=== PATIENT | male | born 1955 | race Caucasian/White ===

== ENCOUNTER 2019-04-26 12:25 | Emergency (ER) | payer BC, OTHER ==
[~2019-04-26] VITALS: Ht 188 cm; Wt 146.9 kg
[~2019-04-26 12:25] MED LIST: DOCU-28 PO; GLIP5TAB13 PO; HYDR-3972 PO; LISI1TAB29 PO; METF500T PO; METO25TA6 PO; PIOG15TA8 PO; POTA20TA10 PO; PRAV40TA3 PO
[2019-04-26 14:09] LABS: BASOPHILS # (AUTO) 0.1 X10'3 (0-0.2); BASOPHILS % (AUTO) 0.6 % (0-1); EOSINOPHILS % (AUTO) 0.2 % (0-6); HEMATOCRIT 41.3 % (42.0-52.0); HEMOGLOBIN 14.5 g/dl (14.0-17.9); LYMPHOCYTES # (AUTO) 1.5 X10'3 (1.1-4.8); LYMPHOCYTES % (AUTO) 14.1 % (21-51); MEAN CORPUSCULAR HEMOGLOBIN 30.7 PG (27.0-31.0); MEAN CORPUSCULAR HGB CONC 35.2 g/dL (33.0-36.5); MEAN CORPUSCULAR VOLUME 87.3 FL (78-98); MEAN PLATELET VOLUME 9.4 FL (7.4-10.4); MONOCYTES # (AUTO) 0.6 X10'3 (0-0.9); MONOCYTES % (AUTO) 5.9 % (2-12); NEUTROPHILS # (AUTO) 8.2 X10'3 (1.8-7.7); NEUTROPHILS % (AUTO) 79.2 % (42-75); PLATELET COUNT 293 X10'3 (140-440); RED BLOOD COUNT 4.73 X10'6 (4.70-6.10); RED CELL DISTRIBUTION WIDTH 14.8 % (11.5-14.5); WHITE BLOOD COUNT 10.3 X10'3 (4.5-11.0)
[2019-04-26 14:14] LABS: ALANINE AMINOTRANSFERASE 32 U/L (12-78); ALBUMIN 3.7 G/DL (3.4-5.0); ALBUMIN/GLOBULIN RATIO 0.8 (1.1-1.5); ALKALINE PHOSPHATASE 72 IU/L (46-116); ANION GAP 13 (8-16); ASPARTATE AMINO TRANSFERASE 16 U/L (10-37); BILIRUBIN,TOTAL 0.2 MG/DL (0.1-1.0); BLOOD UREA NITROGEN 44 MG/DL (7-18); BUN/CREATININE RATIO 27.2 (5.4-32.0); CALCIUM 9.6 MG/DL (8.5-10.1); CHLORIDE 100 MMOL/L (99-107); CREATININE 1.62 MG/DL (0.60-1.10); GLUCOSE 404 MG/DL (70-104); POTASSIUM 3.9 MMOL/L (3.5-5.1); SODIUM 135 MMOL/L (135-145); TOTAL PROTEIN 8.3 G/DL (6.4-8.2); eGFR 43 ML/MIN
--- NOTE | 2019-04-26 14:30 | NUR ---
URINE BEING OBTAINED
[2019-04-26 14:41] LABS: CLARITY,URINE CLEAR (Clear); COLOR,URINE STRAW (Yellow); GLUCOSE, URINE >=1000 mg/dl (Neg); KETONES,URINE NEGATIVE (Neg); LEUKOCYTE ESTERASE ,URINE NEGATIVE (Neg); NITRITES, URINE NEGATIVE (Neg); OCCULT BLOOD,URINE TRACE-INTACT (Neg); PROTEIN,URINE NEGATIVE (Neg); UROBILINOGEN,URINE 0.2 E.U/dL (0.2-1.0)
[2019-04-26 14:48] LABS: UA COLLECTION TYPE CLN CATCH MIDSTREAM
[2019-04-26 14:49] LABS: RBC,URINE 0-2 /HPF (0-2)
[2019-04-26 14:50] LABS: BACTERIA,URINE FEW /HPF (Neg); MUCUS STRANDS NONE SEEN /LPF (Neg); SQUAMOUS EPITHELIAL CELL,UR NONE SEEN /LPF (FEW); WBC CLUMPS,URINE FEW /HPF (NEGATIVE)
[2019-04-26] MEDS ORDERED: normal saline 1000ML IV soln IVB ONE (15:05)
[2019-04-26] MEDS ORDERED: MAGN296S68 PO (18:10)
[2019-04-26 18:16] VITALS: BP 144/86
== END 2019-04-26 18:19 | disposition home or self-care (01) ==
LOC: ER 12:25
DX: E11.65 Type 2 diabetes mellitus with hyperglycemia (principal); E86.0 Dehydration; N28.9 Disorder of kidney and ureter, unspecified; E78.00 Pure hypercholesterolemia, unspecified; I10 Essential (primary) hypertension; Z79.899 Other long term (current) drug therapy
CPT/HCPCS: 36415; 74176; 80053; 81001; 82948; 85025; 87088; 96360; 99284; J7030

== ENCOUNTER 2021-02-16 10:23 | Emergency (ER) | payer BC, OTHER ==
[~2021-02-16] VITALS: Ht 188 cm; Wt 159.0 kg
[~2021-02-16 10:23] MED LIST changes: -LISI1TAB29 PO; +LISI1TAB53 PO; +LOP25T PO; +MAGN296S68 PO; -METO25TA6 PO; +POTA-197 PO; -POTA20TA10 PO
[2021-02-16 11:01] VITALS: BP 147/117
[2021-02-16] MEDS ORDERED: LIDOcaine 5% patch TP STA (13:09)
[2021-02-16] MEDS ORDERED: ketorolac trometh inj. 60 MG/2 ML VIAL IM ONE (13:10)
[2021-02-16] MEDS ORDERED: HYDR-3965 PO (13:20)
[2021-02-16] MEDS ORDERED: NAPR-56 PO (13:20)
[2021-02-16] MEDS ORDERED: LIDO-11 TOP (13:20)
== END 2021-02-16 13:31 | disposition home or self-care (01) ==
LOC: ER 10:24
DX: S20.212A Contusion of left front wall of thorax, initial encounter (principal); R07.81 Pleurodynia; E78.00 Pure hypercholesterolemia, unspecified; I10 Essential (primary) hypertension; E11.9 Type 2 diabetes mellitus without complications; Z79.899 Other long term (current) drug therapy; W01.0XXA Fall on same level from slipping, tripping and stumbling without subsequent striking against object, initial encounter; Y93.89 Activity, other specified; Y92.89 Other specified places as the place of occurrence of the external cause; Y99.8 Other external cause status
CPT/HCPCS: 71101; 96372; 99283; J1885

== ENCOUNTER 2021-06-26 08:57 | Emergency (ER) | payer BC, MEDICARE ==
[~2021-06-26] VITALS: Ht 188 cm; Wt 150.0 kg
[~2021-06-26 08:57] MED LIST changes: +LIDO-11 TOP
--- NOTE | 2021-06-26 10:59 | NUR ---
UA obtained, urinal.
[2021-06-26 11:11] LABS: CLARITY,URINE CLOUDY (Clear); COLOR,URINE YELLOW (Yellow); GLUCOSE, URINE 500 mg/dl (Neg); KETONES,URINE NEGATIVE (Neg); LEUKOCYTE ESTERASE ,URINE SMALL (Neg); NITRITES, URINE NEGATIVE (Neg); OCCULT BLOOD,URINE MODERATE (Neg); PROTEIN,URINE 100 mg/dl (Neg); UROBILINOGEN,URINE 0.2 E.U/dL (0.2-1.0)
[2021-06-26 11:20] LABS: UA COLLECTION TYPE NON-SPECIFIED
[2021-06-26 11:31] LABS: MUCUS STRANDS FEW /LPF (Neg); SQUAMOUS EPITHELIAL CELL,UR MODERATE /LPF (FEW); WBC,URINE 50-100 /HPF (0-4)
[2021-06-26 11:32] LABS: BACTERIA,URINE 1+ /HPF (Neg); RBC,URINE 0-2 /HPF (0-2)
[2021-06-26] MEDS ORDERED: cephalexin 500mg capsule PO ONE (12:05)
[2021-06-26 12:44] VITALS: BP 123/63
--- NOTE | 2021-06-26 12:45 | NUR ---
Pt alert and oriented, no apparent distress or needs.
[2021-06-26] MEDS ORDERED: CEPH-585 PO (13:32)
== END 2021-06-26 13:54 | disposition home or self-care (01) ==
LOC: ER 08:57
DX: N43.3 Hydrocele, unspecified (principal); N50.89 Other specified disorders of the male genital organs; E78.00 Pure hypercholesterolemia, unspecified; I10 Essential (primary) hypertension; E11.9 Type 2 diabetes mellitus without complications; Z79.2 Long term (current) use of antibiotics; Z79.899 Other long term (current) drug therapy
CPT/HCPCS: 76870; 81001; 82948; 87088; 93976; 99284